=== PATIENT | female | born 1960 | race Caucasian/White ===

== ENCOUNTER 2018-04-15 01:54 | Emergency (ER) | payer BC ==
[2018-04-15] MEDS: TETRACAINE 0.5% OPHTH SOLN 4ML OS (03:00)
[2018-04-15] MEDS: TROPICAMIDE 1% OPHTH SOLN 2ML OS (03:00)
== END 2018-04-15 07:20 | disposition home or self-care (01) ==
LOC: M ED 01:54
DX: H53.9 Unspecified visual disturbance (principal); E03.9 Hypothyroidism, unspecified
CPT/HCPCS: 70551